=== PATIENT | female | born 1995 | race Two or more races ===

== ENCOUNTER 2023-04-15 15:25 | Inpatient (IN) | payer OTHER ==
[~2023-04-15] VITALS: Ht 167.6 cm; Wt 84.4 kg
[2023-05-01] MEDS ORDERED: PRENATABS RX T1 EACH PO (14:39)
[2023-05-01] MEDS ORDERED: RINGERS SOLUTION,LACTATED 1,000 ML IV SCH (14:45)
[2023-05-01 15:06] LABS: HEMATOCRIT 32.5 % (36.0-45.00); HEMOGLOBIN 11.1 g/dL (12.0-15.00); MEAN CELL VOLUME 87.9 fL (80.00-100.00); MEAN CORPUSCULAR HEMOGLOBIN 30.1 pg (27.00-32.0); MEAN CORPUSCULAR HGB CONC 34.2 g/dl (32.0-36.0); PLATELET COUNT 226 K/uL (150-450); RED BLOOD COUNT 3.69 M/uL (4.00-6.00); RED CELL DISTRIBUTION WIDTH 14.6 % (11.5-14.5)
[2023-05-01] MEDS ORDERED: OXYTOCIN 20 UNITS/500ML RL PIGGYBAG IV ONE (15:24)
[2023-05-01 15:33] LABS: INR < 0.93; PARTIAL THROMBOPLASTIN TIME 25.4 SECONDS (22.0-34.0); PROTHROMBIN TIME 9.8 SECONDS (9.0-11.5)
[2023-05-01] MEDS ORDERED: OXYTOCIN IV SCH (15:45)
[2023-05-01] MEDS ORDERED: OXYTOCIN 500 ML IV SCH (15:45)
[2023-05-01] MEDS ORDERED: MORPHINE SULFATE 4 MG/ML CARTRIDGE IV ONE (18:15)
[2023-05-01] MEDS ORDERED: ERYTHROMYCIN BASE 1 GM TUBE OP ONE (19:10)
[2023-05-01] MEDS ORDERED: LIDOCAINE HCL 1% 200MG/20ML VIAL IJ ONE (19:10)
[2023-05-01] MEDS ORDERED: CHLORHEXIDINE GLUCONATE 120 ML BOTTLE TOP ONE (19:10)
[2023-05-01] MEDS ORDERED: OXYTOCIN 20 UNITS/1000ML RL PIGGYBAG IV ONE (19:10)
[2023-05-01] MEDS ORDERED: NALOXONE HCL 0.4 MG/ML AMPUL ONE (20:12)
[2023-05-01] MEDS ORDERED: NALOXONE HCL 0.4 MG/ML AMPUL IV STA (20:20)
[2023-05-01] MEDS ORDERED: IBUprofen 400 MG TABLET PO PRN (21:30)
[2023-05-01] MEDS ORDERED: OXYTOCIN 20 UNITS/1000ML 0.45% PIGGYBAG IV SCH (21:30)
[2023-05-01] MEDS ORDERED: OxyCODONE HCL/APAP UD (PERCOCET) PO PRN (21:30)
[2023-05-02] MEDS ORDERED: HYDROCORTISONE 2.5% 30 GM TUBE RECTAL PRN (17:45)
[2023-05-03] MEDS ORDERED: CITRIC ACID/SODIUM CITRATE 30 ML BLIST.PACK PO ONE (08:43)
[2023-05-03] MEDS ORDERED: CEFAZOLIN SODIUM 1,000 MG VIAL ONE (08:45)
== END 2023-05-03 13:12 | disposition home or self-care (01) | DRG 807 ==
LOC: SURG 15:25 → LDR 05-01 14:33 → OB/GYN 05-01 21:35
PROVIDERS: ADMIT Obstetrics & Gynecology; ATTEND Obstetrics & Gynecology
PROC: 10E0XZZ Delivery of Products of Conception, External Approach (ICD-10-PCS; principal; 2023-05-01)
PROC: 0UQG7ZZ Repair Vagina, Via Natural or Artificial Opening (ICD-10-PCS; 2023-05-01)
PROC: 4A1HXCZ Monitoring of Products of Conception, Cardiac Rate, External Approach (ICD-10-PCS; 2023-05-01)
DX: O71.4 Obstetric high vaginal laceration alone (principal); Z37.0 Single live birth; Z3A.40 40 weeks gestation of pregnancy; Z20.822 Contact with and (suspected) exposure to COVID-19

== ENCOUNTER 2023-04-18 14:11 | Outpatient (CLI) | payer OTHER | END 2023-04-18 17:10 | disposition home or self-care (01) | LOC: NST 14:11 | PROVIDERS: ATTEND Obstetrics & Gynecology | DX: Z34.83 Encounter for supervision of other normal pregnancy, third trimester (principal) ==

== ENCOUNTER 2023-04-28 08:05 | Outpatient (CLI) | payer OTHER | END 2023-04-28 09:00 | disposition home or self-care (01) | LOC: NST 08:05 | PROVIDERS: ATTEND Obstetrics & Gynecology | DX: Z34.83 Encounter for supervision of other normal pregnancy, third trimester (principal); Z3A.40 40 weeks gestation of pregnancy ==